=== PATIENT | female | born 1985 ===

== ENCOUNTER 2020-02-28 09:45 | Observation (INO) ==
[2020-02-28] MEDS ORDERED: SODIUM CHLORIDE 0.9% 1,000 ML IV STA ×2 (10:08→11:09)
[2020-02-28 11:05] LABS: Basophils % 0.2 % (0.0-0.8); Eosinophils % 0.1 % (0.00-10.9); Hematocrit 30.1 VOL% (35.7-47.0); Hemoglobin 9.7 GM/DL (12.0-16.0); Immature Granulocytes % 3.7 %; Immature Granulocytes Absolute 0.73 #; Lymphocytes # 1.5 10*3/uL (1.4-4.0); Lymphocytes % 7.5 % (21.3-54.2); Mean Corpuscular HGB Conc 32.2 GM/DL (32-36); Mean Corpuscular Volume 95.6 FL (87-102); Mean Platelet Volume 11.4 FL (9.6-12.0); Monocytes % 4.4 % (1.7-12.7); Neutrophils % 84.1 % (38.7-73.9); Platelet Count 281 T/CUMM (130-400); Red Blood Count 3.15 MC/CUMM (3.8-5.5); Red Cell Distribution Width 12.8 % (9.3-17.3)
[2020-02-28 11:13] LABS: INR 1.2; PT Patient Result 12.8 SECS (9.8-11.9)
[2020-02-28 11:13] LABS: Apearance,Urine CLOUDY (Clear); Bilirubin,Urine Negative (Negative); Blood, Urine Moderate mg/dL (Negative); Glucose,Urine (UA) 50 mg/dL (Negative); Hyaline Casts,Urine 8 /LPF (0-3); Ketones,Urine Negative (Negative); Mucus,Urine Many /LPF (Occasional); Nitrite,Urine Negative (Negative); Protein,Urine 100 MG/DL; RBC,Urine 15 /HPF (0-4); Squamous Epithelial Cell,Urine Few /HPF (0-10); Urine Specific Gravity 1.018 (1.001-1.035); Urine Urobilinogen < 2.0 EU/DL (0.2-1.0); WBC,Urine 69 /HPF (0-6)
[2020-02-28 11:15] LABS: Urine Color Yellow (Yellow)
[2020-02-28] MEDS ORDERED: cefTRIAXone 1,000 MG in SODIUM CHLORIDE 0.9% 100 ML IV STA (11:20)
[2020-02-28 11:34] LABS: Band Neutrophils 3 % (0-10); Lymphocytes 5 % (20-55); Metamyelocytes 5 %; Myelocytes 1 %; Segmented Neutrophils 81 % (50-85); Total Cells Counted 100
[2020-02-28 11:35] LABS: Anisocytosis 1+; Platelet Estimate Normal
[2020-02-28 11:58] LABS: Alanine Aminotransferase 11 U/L (13-56); Albumin 2.6 G/DL (3.4-5.0); Alkaline Phosphatase 48 U/L (45-117); Aspartate Amino Transferase 20 U/L (0-37); Bilirubin,Total < 0.39 MG/DL (0.2-1.0); Blood Urea Nitrogen 13 MG/DL (7-18); Estimated Glom Filtration Rate 48 ML/MIN; Glucose 135 MG/DL (74-106); Osmolality,Calculated 284.1 MOS/KG (273-304); Total Protein 5.2 G/DL (6.4-8.3)
[2020-02-28] MEDS ORDERED: OXYTOCIN/LR 20 UNIT/1,000 ML BAG IV ONE (12:33)
[2020-02-28] MEDS ORDERED: DOCUSATE SODIUM 100 MG CAPSULE PO PRN (15:56)
[2020-02-28] MEDS ORDERED: MAGNESIUM HYDROXIDE SUSP 30 ML UDCUP PO PRN (15:56)
[2020-02-28] MEDS ORDERED: ONDANSETRON 4 MG/2 ML VIAL IV PRN (15:56)
[2020-02-28] MEDS ORDERED: ACETAMINOPHEN 325 MG TABLET PO PRN (15:56)
[2020-02-28] MEDS ORDERED: IBUPROFEN 800 MG TABLET PO PRN (15:56)
[2020-02-28] MEDS ORDERED: BISACODYL 10 MG SUPP RECTAL PRN (15:56)
[2020-02-28] MEDS ORDERED: BENZOCAINE/MENTHOL LOZENGE 18/BOX PO PRN (15:56)
[2020-02-28] MEDS ORDERED: propofoL 200 MG/20 ML VIAL IV ONE (16:03)
[2020-02-28] MEDS ORDERED: SEVOFLURANE 1 UNIT/15 MINUTE INH ONE (16:03)
[2020-02-28] MEDS ORDERED: MIDAZOLAM 2 MG/2 ML VIAL ONE (16:03)
[2020-02-28] MEDS ORDERED: LIDOCAINE 2% 5 ML VIAL ONE (16:03)
[2020-02-28] MEDS ORDERED: DEXAMETHASONE 4 MG/1 ML VIAL ONE (16:04)
[2020-02-28] MEDS ORDERED: KETOROLAC 30 MG/1 ML VIAL ONE (16:04)
[2020-02-28] MEDS ORDERED: PHENYLEPHRINE 1 MG/10 ML SYRINGE IV ONE (16:04)
[2020-02-28] MEDS ORDERED: fentaNYL 100 MCG/2 ML VIAL ONE (16:04)
[2020-02-28] MEDS ORDERED: ONDANSETRON 4 MG/2 ML VIAL ONE (16:04)
[2020-02-28 16:57] VITALS: BP 93/50
[2020-02-28] MEDS: LACTATED RINGERS 1,000 ML IV SCH (18:21)
[2020-02-28] MEDS: ceFAZolin 1,000 MG in SYRINGE 1 EACH IV SCH (19:59)
[2020-02-29] MEDS: LACTATED RINGERS 1,000 ML IV SCH (02:58)
[2020-02-29] MEDS: ceFAZolin 1,000 MG in SYRINGE 1 EACH IV SCH (04:02)
[2020-02-29 05:19] LABS: Basophils % 0.2 % (0.0-0.8); Eosinophils % 0.1 % (0.00-10.9); Hematocrit 20.5 VOL% (35.7-47.0); Hemoglobin 6.9 GM/DL (12.0-16.0); Immature Granulocytes % 0.9 %; Immature Granulocytes Absolute 0.11 #; Lymphocytes # 1.9 10*3/uL (1.4-4.0); Lymphocytes % 15.4 % (21.3-54.2); Mean Corpuscular HGB Conc 33.7 GM/DL (32-36); Mean Corpuscular Volume 91.5 FL (87-102); Mean Platelet Volume 11.6 FL (9.6-12.0); Monocytes % 7.5 % (1.7-12.7); Neutrophils % 75.9 % (38.7-73.9); Platelet Count 190 T/CUMM (130-400); Red Blood Count 2.24 MC/CUMM (3.8-5.5); Red Cell Distribution Width 12.8 % (9.3-17.3)
[2020-02-29] MEDS ORDERED: FERROUS SULFATE 325 MG TABLET PO ONE (09:29)
== END 2020-02-29 10:02 | disposition home or self-care (01) ==
LOC: EDBD → EDUNIT# → N.ED 09:45 → N.LD 09:45
PROVIDERS: ADMIT Specialist; ATTEND Specialist